=== PATIENT | male | born 1990 | race Caucasian/White ===

== ENCOUNTER 2021-10-23 13:30 | Emergency (ER) | payer BC ==
[2021-10-23 17:12] LABS: BLOOD UREA NITROGEN,BUN 9 mg/dL (7.0-18.0); CARBON DIOXIDE,CO2 26.4 mmol/L (21.0-32.0); CHLORIDE,CL 103 mmol/L (98-107); GLUCOSE RANDOM 106 mg/dL (74-106); POTASSIUM,K 4.5 mmol/L (3.5-5.1); SODIUM,NA 139 mmol/L (136-148)
== END 2021-10-23 18:08 | disposition home or self-care (01) ==
LOC: MW.ED 13:30
DX: R00.2 Palpitations (principal); R06.02 Shortness of breath; Z91.013 Allergy to seafood
CPT/HCPCS: 36415; 71046; 71046-26; 80053; 84484; 85025; 85379; 93005; 99285-25

== ENCOUNTER 2022-07-10 19:03 | Emergency (ER) | payer BC, OTHER ==
[2022-07-10] MEDS ORDERED: Sodium Chloride 0.9% 10 ML Syringe FLUSH PRN (19:23)
[2022-07-10] MEDS ORDERED: Sodium Chloride 0.9% 2.5 ML Syringe FLUSH PRN (19:23)
[2022-07-10 19:42] LABS: CARBON DIOXIDE,CO2 28.2 mmol/L (21.0-32.0); POTASSIUM,K 3.4 mmol/L (3.5-5.1)
== END 2022-07-10 21:50 | disposition home or self-care (01) ==
LOC: MW.ED 19:03
DX: R07.89 Other chest pain (principal); Z91.048 Other nonmedicinal substance allergy status; Z86.16 Personal history of COVID-19
CPT/HCPCS: 36415; 71045; 80053; 80305; 81003; 84484; 85025; 85379; 99285; J3490; 93010; 99283

== ENCOUNTER 2023-01-01 16:07 | Emergency (ER) | payer OTHER ==
[2023-01-01 17:25] LABS: BASOPHILS PERCENT AUTO 0.3 % (0.0-1.5); EOSINOPHILS ABSOLUTE AUTO 0.1 K/uL (0.0-0.7); EOSINOPHILS PERCENT AUTO 0.9 % (0.0-7.0); HEMATOCRIT 46.1 % (38.0-50.0); LYMPHOCYTES ABSOLUTE AUTO 1.9 K/uL (0.6-2.4); MEAN CORPUSCULAR HEMOGLOBIN 31.1 pg (27.0-32.0); MEAN CORPUSCULAR HGB CONC 34.7 g/dL (31.0-37.0); MEAN CORPUSCULAR VOLUME 89.5 fL (80.0-98.0); MONOCYTES ABSOLUTE AUTO 1.1 K/uL (0.0-0.8); MONOCYTES PERCENT AUTO 9.3 % (0.0-15.0); NEUTROPHILS ABSOLUTE AUTO 8.7 K/uL (1.4-5.7); NEUTROPHILS PERCENT AUTO 73.5 % (48.0-80.0); NRBC ABSOLUTE 0 K/uL; PLATELET COUNT,PLT 303 K/uL (150-400); RED BLOOD CELL COUNT 5.15 M/uL (4.50-5.90); WHITE BLOOD CELL COUNT,WBC 11.78 K/uL (4.0-11.0)
[2023-01-01 17:55] LABS: APPEARANCE,URINE SLT CLOUDY; COLOR,URINE YELLOW; GLUCOSE,URINE NEGATIVE (NEGATIVE); KETONES,URINE TRACE mg/dL (NEGATIVE); LEUKOCYTE ESTERASE,URINE TRACE (NEGATIVE); NITRITE,URINE NEGATIVE (NEGATIVE); OCCULT BLOOD,URINE NEGATIVE (NEGATIVE); PROTEIN,URINE TRACE mg/dL (NEGATIVE)
[2023-01-01 17:58] LABS: A/G RATIO 1.2 (0.9-1.6); ACETAMINOPHEN <2.0 ug/mL; ALANINE AMINOTRANSFERASE,ALT 71 IU/L (14-63); ALBUMIN 4.6 g/dL (3.4-5.0); ALKALINE PHOSPHATASE 56 U/L (46-116); ASPARTATE AMNIOTRANSFERASE,AST 41 IU/L (15-37); BILIRUBIN TOTAL 0.8 mg/dL (0.2-1.0); BLOOD UREA NITROGEN,BUN 12 mg/dL (7.0-18.0); CALCIUM 10.2 mg/dL (8.5-10.1); CARBON DIOXIDE,CO2 24.7 mmol/L (21.0-32.0); CHLORIDE,CL 102 mmol/L (98-107); ETHANOL BLOOD MEDICAL <3 mg/dL; GLUCOSE RANDOM 123 mg/dL (74-106); MAGNESIUM 2.1 mg/dL (1.8-2.4); POTASSIUM,K 4.1 mmol/L (3.5-5.1); PROTEIN TOTAL,TP 8.5 g/dL (6.4-8.2); SODIUM,NA 139 mmol/L (136-148); TSH ULTRASENSITIVE 2.39 uIU/mL (0.36-3.74)
[2023-01-01 18:00] LABS: ESTIMATED GFR 103 mL/min (>60); SALICYLATE < 0.2 mg/dL (0.0-20.0)
[2023-01-01 18:00] LABS: BILIRUBIN,URINE SMALL (NEGATIVE)
[2023-01-01 18:03] LABS: AMPHETAMINES SCREEN, URINE NEGATIVE (CUTOFF=500); BARBITURATE SCREEN,URINE NEGATIVE (CUTOFF=200); BENZODIAZEPINES SCREEN,URINE NEGATIVE (CUTOFF=150); BUPRENORPHINE SCREEN,URINE NEGATIVE (CUTOFF=10); METHADONE SCREEN, URINE NEGATIVE (CUTOFF=200); METHAMPHETAMINES SCREEN, URINE NEGATIVE (CUTOFF=500); OXYCODONE SCREEN,URINE NEGATIVE (CUT0FF=100); PCP SCREEN,URINE NEGATIVE (CUTOFF=25); PROPOXYPHENE SCREEN,URINE NEGATIVE (CUTOFF=300); THC SCREEN,URINE 20 NG/ML NEGATIVE (CUTOFF=50)
[2023-01-01 18:05] LABS: BACTERIA,URINE OCCASIONAL (NEGATIVE); CALCIUM OXALATE CRYSTALS,URINE FEW (NEGATIVE); EPITHELIAL CELLS,URINE FEW (NONE-FEW); RBC,URINE 0-2 (0-2/HPF); SQUAMOUS EPITHELIAL CELLS,UR FEW; WBC,URINE 0-5 (0-5/HPF)
[2023-01-01 18:06] LABS: MUCUS,URINE FEW (NONE-MOD)
== END 2023-01-01 20:20 ==
LOC: MW.ED 16:07
DX: R45.851 Suicidal ideations (principal); J45.909 Unspecified asthma, uncomplicated; F17.210 Nicotine dependence, cigarettes, uncomplicated; Z86.16 Personal history of COVID-19; Z91.048 Other nonmedicinal substance allergy status; Z91.013 Allergy to seafood
CPT/HCPCS: 36415; 80053; 80143; 80179; 80305-QW; 80307; 81001; 83735; 84443; 85025; 99285

== ENCOUNTER 2023-01-02 03:53 | Emergency (ER) | payer OTHER | END 2023-01-02 06:33 | LOC: MW.ED 03:53 | DX: R45.851 Suicidal ideations (principal); Z86.16 Personal history of COVID-19; Z91.048 Other nonmedicinal substance allergy status; Z91.013 Allergy to seafood | CPT/HCPCS: 99285 ==

== ENCOUNTER 2023-05-19 10:14 | Emergency (ER) | payer SELFPAY ==
[2023-05-19] MEDS ORDERED: Sodium Chloride 0.9% 2.5 ML Syringe FLUSH PRN (10:34)
[2023-05-19] MEDS ORDERED: Sodium Chloride 0.9% 10 ML Syringe FLUSH PRN (10:34)
[2023-05-19] MEDS ORDERED: Albuterol/Ipratropium 3.0-0.5 MG/3 ML Neb Soln NEB STA (10:37)
[2023-05-19 11:01] LABS: BASOPHILS ABSOLUTE AUTO 0.09 K/uL (0.00-0.20); BASOPHILS PERCENT AUTO 0.9 % (0.0-1.0); EOSINOPHILS ABSOLUTE AUTO 0.45 K/uL (0.00-0.45); EOSINOPHILS PERCENT AUTO 4.6 % (0.0-6.0); HEMATOCRIT 43.1 % (42.0-52.0); HEMOGLOBIN 15.3 g/dL (14.0-18.0); IMMATURE GRAN ABSOLUTE AUTO 0.03 K/uL (0.00-0.05); IMMATURE GRAN PERCENT AUTO 0.3 % (0.0-0.4); LYMPHOCYTES ABSOLUTE AUTO 2.49 K/uL (1.00-4.80); LYMPHOCYTES PERCENT AUTO 25.5 % (24.0-44.0); MEAN CORPUSCULAR HEMOGLOBIN 31.3 pg (28.0-32.0); MEAN CORPUSCULAR HGB CONC 35.5 g/dL (32.0-36.0); MEAN CORPUSCULAR VOLUME 88.1 fL (83.0-99.0); MEAN PLATELET VOLUME 10.1 fL (9.4-12.4); MONOCYTES ABSOLUTE AUTO 1.12 K/uL (0.00-0.80); MONOCYTES PERCENT AUTO 11.5 % (0.0-8.0); NEUTROPHILS ABSOLUTE AUTO 5.59 K/uL (1.80-7.70); NEUTROPHILS PERCENT AUTO 57.2 % (41.0-71.0); PLATELET COUNT,PLT 213 K/uL (150-400); RED BLOOD CELL COUNT 4.89 M/uL (4.52-5.90); WHITE BLOOD CELL COUNT,WBC 9.77 K/uL (3.9-11.3)
[2023-05-19 11:21] LABS: A/G RATIO 1.1 (0.9-1.6); ALBUMIN 4.1 g/dL (3.4-5.0); BILIRUBIN TOTAL 0.8 mg/dL (0.2-1.0); CALCIUM 9.1 mg/dL (8.5-10.1); CARBON DIOXIDE,CO2 24.4 mmol/L (21.0-32.0); EST CRCL DRUG DOSING (CG) 111.38 mL/min; POTASSIUM,K 3.9 mmol/L (3.5-5.1); PROTEIN TOTAL,TP 7.7 g/dL (6.4-8.2)
[2023-05-19 11:21] LABS: CORONAVIRUS COVID-19 NAA NEGATIVE (NEGATIVE); INFLUENZA A NAA NEGATIVE (NEGATIVE); INFLUENZA B NAA NEGATIVE (NEGATIVE)
[2023-05-19] MEDS ORDERED: Iopamidol 755 MG/ML 500 ML Multipack Bottle IVPUSH STA (13:03)
== END 2023-05-19 14:25 | disposition home or self-care (01) ==
LOC: MW.ED 10:14
DX: J40 Bronchitis, not specified as acute or chronic (principal); Z86.16 Personal history of COVID-19; Z91.048 Other nonmedicinal substance allergy status; Z91.013 Allergy to seafood; Z79.899 Other long term (current) drug therapy; Z20.822 Contact with and (suspected) exposure to COVID-19
CPT/HCPCS: 0240U; 36415; 71046; 71275; 80053; 83690; 83735; 84484; 85025; 85379; 93005; 99285; J3490; Q9967; 93010; 99284; J7620-GY

== ENCOUNTER 2023-09-28 17:42 | Emergency (ER) | payer SELFPAY ==
[2023-09-28 18:21] LABS: BASOPHILS ABSOLUTE AUTO 0.08 K/uL (0.00-0.20); BASOPHILS PERCENT AUTO 0.8 % (0.0-1.0); EOSINOPHILS ABSOLUTE AUTO 0.43 K/uL (0.00-0.45); EOSINOPHILS PERCENT AUTO 4.5 % (0.0-6.0); HEMATOCRIT 41.9 % (42.0-52.0); HEMOGLOBIN 14.7 g/dL (14.0-18.0); IMMATURE GRAN ABSOLUTE AUTO 0.04 K/uL (0.00-0.05); IMMATURE GRAN PERCENT AUTO 0.4 % (0.0-0.4); LYMPHOCYTES ABSOLUTE AUTO 2.97 K/uL (1.00-4.80); LYMPHOCYTES PERCENT AUTO 31.3 % (24.0-44.0); MEAN CORPUSCULAR HEMOGLOBIN 31.3 pg (28.0-32.0); MEAN CORPUSCULAR HGB CONC 35.1 g/dL (32.0-36.0); MEAN CORPUSCULAR VOLUME 89.3 fL (83.0-99.0); MEAN PLATELET VOLUME 10.1 fL (9.4-12.4); MONOCYTES ABSOLUTE AUTO 0.85 K/uL (0.00-0.80); NEUTROPHILS ABSOLUTE AUTO 5.12 K/uL (1.80-7.70); PLATELET COUNT,PLT 242 K/uL (150-400); RED BLOOD CELL COUNT 4.69 M/uL (4.52-5.90); WHITE BLOOD CELL COUNT,WBC 9.49 K/uL (3.9-11.3)
[2023-09-28 18:45] LABS: A/G RATIO 1.1 (0.9-1.6); ALBUMIN 4.1 g/dL (3.4-5.0); BILIRUBIN TOTAL 0.3 mg/dL (0.2-1.0); CALCIUM 9.3 mg/dL (8.5-10.1); CARBON DIOXIDE,CO2 27.2 mmol/L (21.0-32.0); CREATININE 1.2 mg/dL (0.8-1.3); EST CRCL DRUG DOSING (CG) 101.8 mL/min; POTASSIUM,K 4.1 mmol/L (3.5-5.1); PROTEIN TOTAL,TP 7.9 g/dL (6.4-8.2)
== END 2023-09-28 19:18 | disposition home or self-care (01) ==
LOC: MW.ED 17:42
DX: Z77.098 Contact with and (suspected) exposure to other hazardous, chiefly nonmedicinal, chemicals (principal); J45.909 Unspecified asthma, uncomplicated; Z91.048 Other nonmedicinal substance allergy status; Z91.013 Allergy to seafood; Z79.51 Long term (current) use of inhaled steroids; Z79.899 Other long term (current) drug therapy; Z75.8 Other problems related to medical facilities and other health care
CPT/HCPCS: 36415; 80053; 85025; 93005; 93010; 99282; 99284